=== PATIENT | female | born 1990 | race American Indian/Alaskan Native ===

== ENCOUNTER 2018-06-11 10:19 | Emergency (ER) | payer MEDICAID, OTHER ==
[2018-06-11 10:54] VITALS: BP 121/70
--- NOTE | 2018-06-11 15:04 | Emergency Department Report ---
- General Chief complaint: Skin/Abscess/Foreign Body Stated complaint: NAVEL ODOR/PAIN Source: patient Mode of arrival: Ambulatory Limitations: No Limitations - History of Present Illness Initial comments: This is a 27-year-old -[place] female who presents with drainage to the umbilical area for 4 days. Patient states initially she felt some cramping around navel area for 2 weeks followed by a sharp pain yesterday while at work. Today she noticed foul smelling discharge from navel 4 days ago. She cleaned navel with peroxide and water with no improvement of symptoms. Patient denies injury, piercings, numbness or tingling, swelling, fever, numbness or tingling. MD complaint: other (discharg) Onset/Timin -: days(s) Tetanus Up to Date: yes Severity: mild Severity scale (0 -10): 7 Quality: aching Consistency: intermittent Improves with: none Worsens with: palpation Context: none Associated symptoms: denies other symptoms - Related Data Home Medications Medication Instructions Recorded Confirmed Last Taken Omeprazole (Nf) [PriLOSEC (Nf)] 20 mg PO DAILY PRN 01/06/16 01/06/16 01/04/16 12:00 1 Pnv,Calcium 72/Iron,Carb/Folic 1 tab PO DAILY 01/06/16 01/06/16 01/04/16 12:00 [ Plus Iron Tablet] 1 Previous Rx's Medication Instructions Recorded Last Taken Type Docusate Sodium [Colace] 100 mg PO BID PRN #60 capsule 01/07/16 Unknown Rx Ferrous Sulfate [Feosol 325 MG tab] 325 mg PO TID #90 tablet 01/07/16 Unknown Rx Ibuprofen [Motrin] 800 mg PO Q8HR PRN #30 tablet 01/07/16 Unknown Rx Vit-Fe Fumar-FA [ 1 tab PO QDAY #30 tablet 01/07/16 Unknown Rx Vitamin] oxyCODONE /ACETAMINOPHEN [Percocet 1 tab PO Q6HR PRN #40 tablet 01/07/16 Unknown Rx 5/325] Penicillin G Potassium [Pfizerpen 2.4 mil.units IV ONCE #1 vial 01/08/16 Unknown Rx INJ] Clindamycin [Clindamycin CAP] 300 mg PO Q8H #21 cap 06/11/18 Unknown Rx Allergies Allergy/AdvReac Type Severity Reaction Status Date / Time hydrocodone Allergy Hives Verified 09/23/14 11:45 Abscess Boil HPI - HPI Chief Complaint: Skin/Abscess/Foreign Body Stated Complaint: NAVEL ODOR/PAIN Home Medications: Home Medications Medication Instructions Recorded Confirmed Last Taken Omeprazole (Nf) [PriLOSEC (Nf)] 20 mg PO DAILY PRN 01/06/16 01/06/16 01/04/16 12:00 1 Pnv,Calcium 72/Iron,Carb/Folic 1 tab PO DAILY 01/06/16 01/06/16 01/04/16 12:00 [ Plus Iron Tablet] 1 Previous Rx's Medication Instructions Recorded Last Taken Type Docusate Sodium [Colace] 100 mg PO BID PRN #60 capsule 01/07/16 Unknown Rx Ferrous Sulfate [Feosol 325 MG tab] 325 mg PO TID #90 tablet 01/07/16 Unknown Rx Ibuprofen [Motrin] 800 mg PO Q8HR PRN #30 tablet 01/07/16 Unknown Rx Vit-Fe Fumar-FA [ 1 tab PO QDAY #30 tablet 01/07/16 Unknown Rx Vitamin] oxyCODONE /ACETAMINOPHEN [Percocet 1 tab PO Q6HR PRN #40 tablet 01/07/16 Unknown Rx 5/325] Penicillin G Potassium [Pfizerpen 2.4 mil.units IV ONCE #1 vial 01/08/16 Unknown Rx INJ] Clindamycin [Clindamycin CAP] 300 mg PO Q8H #21 cap 06/11/18 Unknown Rx Allergies/Adverse Reactions: Allergies Allergy/AdvReac Type Severity Reaction Status Date / Time hydrocodone Allergy Hives Verified 09/23/14 11:45 ED Review of Systems ROS: Stated complaint: NAVEL ODOR/PAIN Other details as noted in HPI Constitutional: denies: chills, fever Respiratory: denies: cough, shortness of breath, wheezing Cardiovascular: denies: chest pain, palpitations Gastrointestinal: denies: abdominal pain (pain around umbilical and discharge), nausea, diarrhea Skin: denies: rash, lesions Neurological: denies: headache, weakness, paresthesias Psychiatric: denies: anxiety, depression ED Past Medical Hx - Past Medical History Previous Medical History?: Yes Hx Hypertension: No Hx Congestive Heart Failure: No Hx Diabetes: No Hx Deep Vein Thrombosis: No Hx Renal Disease: No Hx Sickle Cell Disease: No Hx Seizures: No Hx Asthma: Yes Hx COPD: No Hx HIV: No Additional medical history: HPV - Surgical History Past Surgical History?: Yes Hx Cholecystectomy: Yes - Social History Smoking Status: Never Smoker Substance Use Type: None - Medications Home Medications: Home Medications Medication Instructions Recorded Confirmed Last Taken Type Omeprazole (Nf) [PriLOSEC (Nf)] 20 mg PO DAILY PRN 01/06/16 01/06/16 01/04/16 12:00 History 1 Pnv,Calcium 72/Iron,Carb/Folic 1 tab PO DAILY 01/06/16 01/06/16 01/04/16 12:00 History [ Plus Iron Tablet] 1 Docusate Sodium [Colace] 100 mg PO BID PRN #60 capsule 01/07/16 Unknown Rx Ferrous Sulfate [Feosol 325 MG tab] 325 mg PO TID #90 tablet 01/07/16 Unknown Rx Ibuprofen [Motrin] 800 mg PO Q8HR PRN #30 tablet 01/07/16 Unknown Rx Vit-Fe Fumar-FA [ 1 tab PO QDAY #30 tablet 01/07/16 Unknown Rx Vitamin] oxyCODONE /ACETAMINOPHEN [Percocet 1 tab PO Q6HR PRN #40 tablet 01/07/16 Un known Rx 5/325] Penicillin G Potassium [Pfizerpen 2.4 mil.units IV ONCE #1 vial 01/08/16 Unknown Rx INJ] Clindamycin [Clindamycin CAP] 300 mg PO Q8H #21 cap 06/11/18 Unknown Rx ED Physical Exam - General Limitations: No Limitations General appearance: alert, in no apparent distress, obese (morbidly obese) - Respiratory Respiratory exam: Present: normal lung sounds bilaterally. Absent: respiratory distress - Cardiovascular Cardiovascular Exam: Present: regular rate, normal rhythm. Absent: systolic murmur, diastolic murmur, rubs, gallop - GI/Abdominal GI/Abdominal exam: Present: soft, normal bowel sounds. Absent: distended, tenderness, guarding, rebound, rigid, organomegaly, mass, bruit, pulsatile mass, hernia - Neurological Exam Neurological exam: Present: alert, oriented X3 - Psychiatric Psychiatric exam: Present: normal affect, normal mood - Skin Skin exam: Present: warm, dry, intact, normal color, other (erythematous umbilicus, induration, malodorous discharge, tenderness, no palpable mass or swelling). Absent: rash ED Course Vital Signs 06/11/18 10:52 Temperature 98.2 F Pulse Rate 85 Respiratory 20 Rate Blood Pressure 121/70 O2 Sat by Pulse 98 Oximetry ED Medical Decision Making - Medical Decision Making Patient was examined by me. Vitals are normal and patient is in no acute distress. On focal exam there is some induration and erythema the umbilicus with malodorous discharge. Findings are susceptible cellulitis infection of the umbilicus. Patient informed of results. Tetanus received in 2013. Patient will be started on clindamycin. Plan discussed with patient to discharge home and treat outpatient. She agrees with the ER plan. Patient discharged home in stable condition. Follow up with PCP in 2-3 days. Critical care attestation.: If time is entered above; I have spent that time in minutes in the direct care of this critically ill patient, excluding procedure time. ED Disposition Clinical Impression: Umbilicus discharge, Cellulitis of umbilicus Disposition: DC-01 TO HOME OR SELFCARE Is pt being admited?: No Does the pt Need Aspirin: No Condition: Stable Instructions: Cellulitis (ED) Additional Instructions: Complete full course of antibiotics as prescribed. Avoid drinking alcohol while taking antibiotics for 24 hours of completion. Return to the emergency room if increased discharge, warmth, swelling around the umbilical, or fever. Prescriptions: Clindamycin [Clindamycin CAP] 300 mg PO Q8H #21 cap Referrals: CONOR XIONG MD [Primary Care Provider] - 3-5 Days [facility] [Outside] - 3-5 Days [facility] [Provider Group] - 3-5 Days Forms: Work/School Release Form(ED) Time of Disposition: 15:16
== END 2018-06-11 15:25 | disposition home or self-care (01) ==
LOC: ED 10:19
DX: L03.316 Cellulitis of umbilicus (principal); J45.909 Unspecified asthma, uncomplicated; Z90.49 Acquired absence of other specified parts of digestive tract; Z88.5 Allergy status to narcotic agent

== ENCOUNTER 2021-10-30 15:46 | Emergency (ER) | payer OTHER ==
--- NOTE | 2021-10-30 18:35 | XRay Report ---
. Left knee 3 views INDICATION: Knee injury FINDINGS: Alignment appears normal. No acute fracture dislocation. No large joint effusion. Signer Name: Joselito Helm MD Signed: 10/30/2021 6:30 PM Workstation Name: [id number]
[2021-10-31] MEDS ORDERED: CYCLOBENZAPRINE 10 MG TAB PO ONE (07:42)
[2021-10-31] MEDS ORDERED: KETOROLAC 10 MG TAB PO ONE (07:42)
[2021-10-31] MEDS ORDERED: oxyCODONE /ACETAMINOPHEN 5-325MG TAB PO ONE (07:42)
--- NOTE | 2021-10-31 07:48 | Emergency Department Report ---
ED Lower Extremity HPI - General Chief Complaint: Extremity Injury, Lower Stated Complaint: LEG PAIN Time Seen by Provider: 10/31/21 07:39 Source: patient Mode of arrival: Ambulatory Limitations: No Limitations - History of Present Illness Initial Comments: 31-year-old black female with no past medical history presents to the emergency department for evaluation of left knee pain. She states that she was walking yesterday, and her knee popped, gave out, and felt like it is out of place. She states that she has had pain with walking since then. MD Complaint: knee injury -: Sudden, days(s) (1) Injury: Knee: Left Type of Injury: hyperextension Place: home Severity: moderate, severe Severity scale (0 -10): 7 Worsens With: weight bearing Associated Symptoms: snap/pop sensation, able to partially bear weight. denies: swelling, numbness, tingling - Related Data Home Medications Medication Instructions Recorded Confirmed Last Taken Omeprazole (Nf) [PriLOSEC (Nf)] 20 mg PO DAILY PRN 01/06/16 01/06/16 01/04/16 12:00 1 Pnv,Calcium 72/Iron,Carb/Folic 1 tab PO DAILY 01/06/16 01/06/16 01/04/16 12:00 [ Plus Iron Tablet] 1 Previous Rx's Medication Instructions Recorded Last Taken Type Docusate Sodium [Colace] 100 mg PO BID PRN #60 capsule 01/07/16 Unknown Rx Ferrous Sulfate [Feosol 325 MG tab] 325 mg PO TID #90 tablet 01/07/16 Unknown Rx Ibuprofen [Motrin] 800 mg PO Q8HR PRN #30 tablet 01/07/16 Unknown Rx Vit-Fe Fumar-FA [ 1 tab PO QDAY #30 tablet 01/07/16 Unknown Rx Vitamin] oxyCODONE /ACETAMINOPHEN [Percocet 1 tab PO Q6HR PRN #40 tablet 01/07/16 Unknown Rx 5/325] Penicillin G Potassium [Pfizerpen 2.4 mil.units IV ONCE #1 vial 01/08/16 Unknown Rx INJ] Clindamycin [Clindamycin CAP] 300 mg PO Q8H #21 cap 06/11/18 Unknown Rx Acyclovir [Zovirax Tab] 800 mg PO QID #40 tablet 10/17/18 Unknown Rx Ibuprofen [Motrin 800 MG tab] 800 mg PO Q8HR PRN #21 tablet 10/17/18 Unknown Rx Naproxen 500 mg PO BID 7 Days #14 tab 10/31/21 Unknown Rx Allergies Allergy/AdvReac Type Severity Reaction Status Date / Time hydrocodone Allergy Hives Verified 10/17/18 17:08 ED Review of Systems ROS: Stated complaint: LEG PAIN Other details as noted in HPI Comment: All other systems reviewed and negative Constitutional: denies: chills, fever Respiratory: denies: shortness of breath Cardiovascular: denies: chest pain, palpitations Gastrointestinal: denies: nausea, vomiting Musculoskeletal: denies: back pain Neurological: denies: headache, weakness ED Past Medical Hx - Past Medical History Previous Medical History?: Yes Hx Hypertension: No Hx Congestive Heart Failure: No Hx Diabetes: No Hx Deep Vein Thrombosis: No Hx Renal Disease: No Hx Sickle Cell Disease: No Hx Seizures: No Hx Asthma: Yes Hx COPD: No Hx HIV: No Additional medical history: HPV, Morbid obesity - Surgical History Past Surgical History?: Yes Hx Cholecystectomy: Yes Additional Surgical History: C SECTION - Social History Smoking Status: Never Smoker Substance Use Type: None - Medications Home Medications: Home Medications Medication Instructions Recorded Confirmed Last Taken Type Omeprazole (Nf) [PriLOSEC (Nf)] 20 mg PO DAILY PRN 01/06/16 01/06/16 01/04/16 12:00 History 1 Pnv,Calcium 72/Iron,Carb/Folic 1 tab PO DAILY 01/06/16 01/06/16 01/04/16 12:00 History [ Plus Iron Tablet] 1 Docusate Sodium [Colace] 100 mg PO BID PRN #60 capsule 01/07/16 Unknown Rx Ferrous Sulfate [Feosol 325 MG tab] 325 mg PO TID #90 tablet 01/07/16 Unknown Rx Ibuprofen [Motrin] 800 mg PO Q8HR PRN #30 tablet 01/07/16 Unknown Rx Vit-Fe Fumar-FA [ 1 tab PO QDAY #30 tablet 01/07/16 Unknown Rx Vitamin] oxyCODONE /ACETAMINOPHEN [Percocet 1 tab PO Q6HR PRN #40 tablet 01/07/16 Unknown Rx 5/325] Penicillin G Potassium [Pfizerpen 2.4 mil.units IV ONCE #1 vial 01/08/16 Unkn own Rx INJ] Clindamycin [Clindamycin CAP] 300 mg PO Q8H #21 cap 06/11/18 Unknown Rx Acyclovir [Zovirax Tab] 800 mg PO QID #40 tablet 10/17/18 Unknown Rx Ibuprofen [Motrin 800 MG tab] 800 mg PO Q8HR PRN #21 tablet 10/17/18 Unknown Rx Naproxen 500 mg PO BID 7 Days #14 tab 10/31/21 Unknown Rx ED Physical Exam - General Limitations: No Limitations General appearance: alert, in no apparent distress - Head Head exam: Present: atraumatic, normocephalic - Eye Eye exam: Present: normal appearance. Absent: conjunctival injection - Neck Neck exam: Present: normal inspection - Respiratory Respiratory exam: Absent: respiratory distress - Cardiovascular Cardiovascular Exam: Present: regular rate - GI/Abdominal GI/Abdominal exam: Absent: distended - Extremities Exam Extremities exam: Present: normal inspection, normal capillary refill. Absent: pedal edema, joint swelling, calf tenderness - Expanded Lower Extremity Exam Left Knee exam: Present: tenderness. Absent: full ROM, swelling, abrasion, laceration, ecchymosis, deformity, crepidus, dislocation, erythema, effusion Lower Leg exam: Present: normal inspection Ankle exam: Present: normal inspection Neuro vascular tendon exam: Present: no vascular compromise. Absent: pulse deficit, abnormal cap refill, motor deficit, extremity cold to touch, pallor Gait: Positive: observed and limited by pain - Back Exam Back exam: Present: normal inspection - Neurological Exam Neurological exam: Present: alert, oriented X3 - Psychiatric Psychiatric exam: Present: normal affect, normal mood - Skin Skin exam: Present: warm, dry, intact, normal color ED Course Vital Signs 10/30/21 17:41 Temperature 98.3 F Pulse Rate 76 Respiratory 20 Rate Blood Pressure 131/85 [Right] O2 Sat by Pulse 99 Oximetry ED Lower Extremity MDM - Radiology Data Radiology results: report reviewed, image reviewed Left knee x-ray: FINDINGS: Alignment appears normal. No acute fracture dislocation. No large joint effusion. - Medical Decision Making 31-year-old black female with no past medical history presents to the emergency department for evaluation of left knee pain. She states that she was walking yesterday, and her knee popped, gave out, and felt like it is out of place. She states that she has had pain with walking since then. Left knee x-ray without any acute abnormalities noted. Patient will be discharged home with 7-day course of naproxen and advised to follow-up with her primary care provider or orthopedics if no improvement or worsening symptoms. She is advised to return to the emergency department as needed. She verbalizes understanding of and agreement with plan of care. Critical care attestation.: If time is entered above; I have spent that time in minutes in the direct care of this critically ill patient, excluding procedure time. ED Disposition Clinical Impression: Left knee pain Qualifiers: Chronicity: acute Qualified Code(s): M25.562 - Pain in left knee Disposition: HOME / SELF CARE / HOMELESS Is pt being admited?: No Does the pt Need Aspirin: No Condition: Stable Instructions: Acute Knee Pain, Adult, How to Use Cold Therapy, [id number], Musculoskeletal Pain, Joint Pain, [id number] Additional Instructions: Take medications as prescribed. Follow-up with your primary care provider or orthopedics if no improvement or worsening symptoms. Return to the emergency department as needed. Prescriptions: Naproxen 500 mg PO BID 7 Days #14 tab Referrals: WHITNEY WICK MD [Staff Physician] - 3-5 Days KARLA MADSEN MD [Staff Physician] - 3-5 Days Forms: Work/School Release Form(ED) Time of Disposition: 07:48
[2021-10-31 08:09] VITALS: BP 126/86
== END 2021-10-31 08:16 | disposition home or self-care (01) ==
LOC: ED 15:46
DX: M25.562 Pain in left knee (principal); J45.909 Unspecified asthma, uncomplicated; Z90.49 Acquired absence of other specified parts of digestive tract; Z91.09 Other allergy status, other than to drugs and biological substances
CPT/HCPCS: 99283